=== PATIENT | male | born 2000 | race Caucasian/White ===

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

== ENCOUNTER 2023-04-03 15:46 | Emergency (ER) | payer MEDICAID ==
[~2023-04-03] VITALS: Ht 175.3 cm; Wt 106.7 kg
[~2023-04-03 15:46] MED LIST: HYDR-4383 PO
[2023-04-03 18:26] VITALS: BP 120/73; PULSE 99; RESP 17; TEMP 99.1; O2SAT 97
[2023-04-03] MEDS ORDERED: OSEL45CA PO (18:30)
--- NOTE | 2023-04-03 19:14 | NUR ---
I have reviewed and agree with assessment by Korina LUQUE.
== END 2023-04-03 19:15 | disposition home or self-care (01) ==
LOC: ER 15:46
DX: B34.9 Viral infection, unspecified (principal)
CPT/HCPCS: 99283